=== PATIENT | female | born 1960 | race Caucasian/White ===

== ENCOUNTER 2018-12-21 19:32 | Outpatient (REF) | payer OTHER, SELFPAY ==
[2018-12-21 22:20] LABS: Anion Gap 9.9 mmol/L (3-11); BUN 12 mg/dL (7-18); CO2 26.1 mmol/L (21.0-32.0); CREATININE 0.92 mg/dL (0.55-1.02); Calcium 8.8 mg/dL (8.5-10.1); Chloride 101 mmol/L (98-107); Glucose 90 mg/dL (70-100); Potassium 4.2 mmol/L (3.5-5.1); Sodium 137 mmol/L (136-145)
== END 2018-12-21 19:52 ==
LOC: NCHCN 19:32
PROVIDERS: PCP Nurse Practitioner Family; Visit Provider Registered Nurse
DX: I10 Essential (primary) hypertension (principal)
CPT/HCPCS: 80048

== ENCOUNTER 2020-01-03 22:07 | Outpatient (REF) | payer OTHER, SELFPAY ==
[2020-01-03 20:45] LABS: Anion Gap 6.6 mmol/L (3-11); BUN 17 mg/dL (7-18); CO2 32.4 mmol/L (21.0-32.0); CREATININE 0.93 mg/dL (0.55-1.02); Calcium 9.2 mg/dL (8.5-10.1); Chloride 103 mmol/L (98-107); Glucose 86 mg/dL (74-106); Potassium 4.2 mmol/L (3.5-5.1); Sodium 142 mmol/L (136-145)
== END 2020-01-03 22:27 ==
LOC: NCHCN 22:07
PROVIDERS: PCP Nurse Practitioner Family; Visit Provider Registered Nurse
DX: I10 Essential (primary) hypertension (principal)
CPT/HCPCS: 80048

== ENCOUNTER 2020-03-28 18:40 | Outpatient (REF) | payer OTHER, SELFPAY ==
[2020-03-30 22:02] LABS: SARS-CoV-2 RNA Source Nasal/Nares
[2020-03-31 12:13] LABS: SARS-CoV-2 RNA Not Detected (NotDetected)
== END 2020-03-28 19:00 ==
LOC: NCHCN 18:40
PROVIDERS: PCP Nurse Practitioner Family; Visit Provider Registered Nurse
DX: Z20.828 Contact with and (suspected) exposure to other viral communicable diseases (principal)
CPT/HCPCS: U0003

== ENCOUNTER 2020-12-18 17:04 | Outpatient (REF) | payer OTHER, SELFPAY ==
[2020-12-18 20:37] LABS: Anion Gap 5.4 mmol/L (3-11); BUN 15 mg/dL (7-18); CO2 31.6 mmol/L (21.0-32.0); CREATININE 1.1 mg/dL (0.55-1.02); Calcium 9.1 mg/dL (8.5-10.1); Calculated LDL 105 mg/dL (<100); Chloride 104 mmol/L (98-107); Cholesterol 186 mg/dL (<200); Estimated GFR 50.84 (mL/min/1.73m2); Glucose 116 mg/dL (74-106); HDL Cholesterol 69 mg/dL (40-60); Potassium 4.6 mmol/L (3.5-5.1); Sodium 141 mmol/L (136-145); Triglyceride 60 mg/dL (<150)
== END 2020-12-18 17:05 | disposition home or self-care (01) ==
LOC: NCHCN 17:04
PROVIDERS: PCP Nurse Practitioner Family; Visit Provider Registered Nurse
DX: Z00.00 Encounter for general adult medical examination without abnormal findings (principal); I10 Essential (primary) hypertension
CPT/HCPCS: 80048; 80061

== ENCOUNTER 2021-04-06 08:52 | Outpatient (REF) | payer OTHER, SELFPAY ==
[2021-04-06 14:46] LABS: Hemoglobin A1C 7.1 % (<5.7)
[2021-04-06 14:49] LABS: Anion Gap 5.5 mmol/L (3-11); BUN 18 mg/dL (7-18); CO2 33.5 mmol/L (21.0-32.0); CREATININE 0.9 mg/dL (0.55-1.02); Calcium 8.9 mg/dL (8.5-10.1); Calculated LDL 61 mg/dL (<100); Chloride 101 mmol/L (98-107); Cholesterol 129 mg/dL (<200); Glucose 129 mg/dL (74-106); HDL Cholesterol 62 mg/dL (40-60); Potassium 4.5 mmol/L (3.5-5.1); Sodium 140 mmol/L (136-145); Triglyceride 34 mg/dL (<150)
== END 2021-04-06 08:53 | disposition home or self-care (01) ==
LOC: NCHCN 08:52
PROVIDERS: PCP Nurse Practitioner Family; Visit Provider Registered Nurse
DX: E11.9 Type 2 diabetes mellitus without complications (principal); E78.5 Hyperlipidemia, unspecified; I10 Essential (primary) hypertension
CPT/HCPCS: 80048; 80061; 83036

== ENCOUNTER 2021-06-17 17:59 | Outpatient (REF) | payer OTHER, SELFPAY ==
[2021-06-17 21:48] LABS: COMMENT (LAB VIEW ONLY) 147.83 mg/dL; PROTEIN 11.5 mg/dL; Prot/Crea Ur Ratio 0.07
== END 2021-06-17 18:00 | disposition home or self-care (01) ==
LOC: NCHCN 17:59
PROVIDERS: PCP Nurse Practitioner Family; Visit Provider Registered Nurse
DX: E11.9 Type 2 diabetes mellitus without complications (principal)
CPT/HCPCS: 82565; 84156

== ENCOUNTER 2021-09-09 19:08 | Outpatient (REF) | payer OTHER, SELFPAY ==
[2021-09-09 22:10] LABS: COMMENT (LAB VIEW ONLY) 88.33 mg/dL; Microalb ug/mg Crea 8.9 ug/mg Cr
== END 2021-09-09 19:09 | disposition home or self-care (01) ==
LOC: NCHCN 19:08
PROVIDERS: PCP Nurse Practitioner Family; Visit Provider Registered Nurse
DX: E11.9 Type 2 diabetes mellitus without complications (principal)
CPT/HCPCS: 82043; 82570

== ENCOUNTER 2022-03-17 08:00 | Outpatient (REF) | payer OTHER, SELFPAY ==
[2022-03-18 16:55] LABS: ALT 26 U/L (16-63); AST 27 U/L (15-37); Alkaline Phosphatase 114 U/L (46-116); Anion Gap 6.7 mmol/L (3-11); BUN 10 mg/dL (7-18); Bilirubin, Total 0.4 mg/dL (0.2-1.0); CO2 31.3 mmol/L (21.0-32.0); CREATININE 0.8 mg/dL (0.70-1.30); Chloride 100 mmol/L (98-107); Estimated GFR 101.32 (mL/min/1.73m2); Glucose 107 mg/dL (74-106); Potassium 4.2 mmol/L (3.5-5.1); Sodium 138 mmol/L (136-145)
== END 2022-03-18 18:21 | disposition home or self-care (01) ==
LOC: NCHCN 08:00
PROVIDERS: PCP Nurse Practitioner Family; Visit Provider Registered Nurse
DX: E11.9 Type 2 diabetes mellitus without complications (principal); I10 Essential (primary) hypertension
CPT/HCPCS: 80053; 83036

== ENCOUNTER 2022-10-06 16:27 | Outpatient (REF) | payer OTHER, SELFPAY ==
--- OUTSIDE RECORDS SUMMARY | 2022-10-06 16:31 | XMS_ITS | CCD ---
Author Name Unknown Address [address] [place] [address] [id number] Organization Unknown Address [address] [place] [address] [id number] Care Team Providers Care Refinery Operator Visbreaking Name Role Phone SERVANDO WHITFIELD Attending Physician [phone] SERVANDO WHITFIELD Er Physician 1 [phone] OMID Ramos Registered Nurse [phone] Vital Signs Vital Sign Value Unit Date/Time Recent/Initial ? BMI (Body Mass Index) 38.77 kg/m^2 10/30/2021 09: 09 Initial VS Weight Measured 255 lbs 10/30/2021 09:09 Ini tial VS Height 68 in 10/30/2021 09:09 Initial VS BSA (Body Surface Area) 2.36 m^2 10/30/2021 0 9:09 Initial VS BP Systolic 155 mmHg 10/30/2021 09:09 Initial VS BP Diastolic 71 mmHg 10/30/2021 09:09 Initia l VS Respiratory Rate 20 bpm 10/30/2021 09:09 In itial VS Heart Rate 84 bpm 10/30/2021 09:09 Initial VS O2 % BldC Oximetry 96 % 10/30/2021 09:09 Initial VS Body Temperature 37.7 degrees 10/30/2021 09:09 In itial VS Allergies Allergy Code Allergy Type Reaction Status PENICILLIN 0 Drug allergy UNKNOWN Active Procedures Unknown or Not Available. History of Immunizations Unknown or Not Available. Problems Unknown or Not Available. Results [facility] GENEXPERT* - Co llect Date/Time: 10/30/2021 09:10 Test Name Code Test Result Test Units Test Ref Rang e COVID 49018-9 NEGATIVE N/A Normal: Negati ve Tier- 20992-8 SYMPTOMS N/A Active Medications Unknown or Not Available. Medications Administered During Visit Unknown or Not Available. Encounters Encounter Diagnosis Diagnosis Code Start Date Bronchitis, not specified as acute or chronic J4 0 10/30/2021 Social History Smoking Status Code Start Date End Date Current every day smoker [id number] Patient Decision Aids Unknown or Not Available. Discharge Instructions You were admitted to [facility] on 10/30/2021 09:00 with a principal diagnosis of Bronchitis, not specified as acute or chronic You had the following tests done:[facility] [employer] GENEXPERT* You were discharged from [facility] on 10/30/2021 09:49 Should you have any questions prior to discharge, please contact a member of your healthcare team. If you have left the hospital and have any questions, please contact your primary care physician. Chief Complaint and Reason For Visit Chief Complaint Date of Onset TROUBLE BREATHING BODY ACHES Function Status Unknown or Not Available. Plan of Care Unknown or Not Available. Referral/Transition of Care Unknown or Not Available.
--- OUTSIDE RECORDS SUMMARY | 2022-10-06 16:31 | XMS_ITS | CCD ---
Author Name Unknown Address [address] [place] [address] [phone] Organization Unknown Address [address] [place] [address] [phone] Care Team Providers Care Pile Driver Operator Name Role Phone LEONOR ELENA Attending Physician [phone] Vital Signs Unknown or Not Available. Allergies Allergy Code Allergy Type Reaction Status PENICILLIN 0 Drug allergy UNKNOWN Active Procedures Unknown or Not Available. History of Immunizations Unknown or Not Available. Problems Unknown or Not Available. Results Unknown or Not Available. Active Medications Medication Code Dose Units Frequency Route Modificatio n Start Date/Time Zithromax 250MG Oral Tablet 038097 1 TABLET DAILY ORAL 10/31/19 09:45 Prescription Detail TAKE 2 TABLETS ORAL DAILY ON DAY 1 AND T HEN1 TABLET DAILY ON DAYS 2-5 Medications Administered During Visit Unknown or Not Available. Encounters Encounter Diagnosis Diagnosis Code Start Date Shortness of breath R0602 11/05/2021 Social History Smoking Status Code Start Date End Date Current every day smoker [id number] Patient Decision Aids Unknown or Not Available. Discharge Instructions You were admitted to [facility] on 11/05/2021 09:28 with a principal diagnosis of Shortness of breath You were discharged from [facility] on 11/05/2021 09:28 Should you have any questions prior to discharge, please contact a member of your healthcare team. If you have left the hospital and have any questions, please contact your primary care physician. Chief Complaint and Reason For Visit Unknown or Not Available. Function Status Unknown or Not Available. Plan of Care Unknown or Not Available. Referral/Transition of Care Unknown or Not Available.
[2022-10-06 21:48] LABS: COMMENT (LAB VIEW ONLY) 64.15 mg/dL; Microalb ug/mg Crea 16.1 ug/mg Cr
== END 2022-10-06 16:28 | disposition home or self-care (01) ==
LOC: NCHCN 16:27
PROVIDERS: PCP Nurse Practitioner Family; Visit Provider Registered Nurse
DX: E11.9 Type 2 diabetes mellitus without complications (principal)
CPT/HCPCS: 82043; 82570

== ENCOUNTER 2023-06-07 16:40 | Outpatient (REF) | payer BC, SELFPAY ==
[2023-06-07 21:35] LABS: COMMENT (LAB VIEW ONLY) 70.47 mg/dL; Microalb ug/mg Crea 13.6 ug/mg Cr
== END 2023-06-07 16:41 | disposition home or self-care (01) ==
LOC: NCHCN 16:40
PROVIDERS: PCP Nurse Practitioner Family; Visit Provider Family Medicine
DX: E11.9 Type 2 diabetes mellitus without complications (principal)
CPT/HCPCS: 82043; 82570

== ENCOUNTER 2024-03-20 17:42 | Outpatient (REF) | payer BC, SELFPAY ==
[2024-03-20 21:32] LABS: HCT 42.2 % (40.0-50.0); HGB 14.1 g/dL (13.5-17.5); MCH 29.9 pg (27.0-33.0); MCHC 33.4 % (32.0-36.0); MCV 90 fL (80-95); MPV 9.1 fL (8.0-11.0); Platelet Count 257 10^3/uL (130-400); RBC 4.71 10^6/uL (4.36-5.78); RDW 12.5 % (11.8-14.1); RDW-SD 41.1 fL
[2024-03-20 21:38] LABS: ALT 29 U/L (16-63); AST 30 U/L (15-37); Alkaline Phosphatase 94 U/L (46-116); Anion Gap 7.4 mmol/L (3-11); BUN 11 mg/dL (7-18); Bilirubin, Total 0.43 mg/dL (0.2-1.0); CO2 30.6 mmol/L (21.0-32.0); Calcium 9.5 mg/dL (8.5-10.1); Calculated LDL 45 mg/dL (<100); Chloride 99 mmol/L (98-107); Cholesterol 119 mg/dL (<200); Glucose 122 mg/dL (74-106); HDL Cholesterol 67 mg/dL (40-60); Potassium 4.5 mmol/L (3.5-5.1); Sodium 137 mmol/L (136-145); Total Protein 8.1 g/dL (6.4-8.2); Triglyceride 35 mg/dL (<150)
[2024-03-20 22:11] LABS: COMMENT (LAB VIEW ONLY) 82.89 mg/dL; Microalb ug/mg Crea 16.2 ug/mg Cr
== END 2024-03-20 17:43 | disposition home or self-care (01) ==
LOC: NCHCN 17:42
PROVIDERS: PCP Nurse Practitioner Family; Visit Provider Family Medicine
DX: E11.9 Type 2 diabetes mellitus without complications (principal); E78.5 Hyperlipidemia, unspecified; I10 Essential (primary) hypertension; Z13.0 Encounter for screening for diseases of the blood and blood-forming organs and certain disorders involving the immune mechanism
CPT/HCPCS: 80053; 80061; 85027; 82043; 82570